=== PATIENT | female | born 1975 | race African-American/Black ===

== ENCOUNTER → 2016-04-13 | Outpatient (CLI) | payer OTHER ==
[~2016-04-13] MED LIST: PANT40TA5 PO
--- NOTE | 2016-04-13 15:53 | KCIC ---
PROCEDURE Pelvic sonogram. HISTORY Left lower quadrant pain. TECHNIQUE Trans abdominal and transvaginal sonographic imaging of the pelvis was performed. COMPARISON 06/27/2013 FINDINGS The uterus is surgically absent. The ovaries are not seen. No adnexal lesion or pelvic free fluid is seen. IMPRESSION 1. Surgically absent uterus. 2. Nonvisualization of the ovaries. Electronically signed by: Leti Gutierrez (Apr 13, 2016 15:51:49)
--- NOTE | 2016-04-13 17:08 | KCIC ---
Bilateral digital screening mammograms with CAD: HISTORY Routine screening COMPARISON Comparison is made to previous examinations dated 04/04/2015 and 03/30/2014. FINDINGS Breast density category C. The skin and nipples show no abnormalities. No abnormal lymph nodes are seen in the axilla. The breast parenchyma shows heterogeneous density. There are no dominant masses, suspicious calcifications or architectural distortions. IMPRESSION No evidence of malignancy. Recommend routine annual mammographic screening. This study was interpreted with the benefit of Computerized Aided Detection (CAD). Mammography is not 100% sensitive in detecting breast cancer. Therefore, a self breast exam and a clinical breast exam are very important. A negative mammogram does not negate a clinically suspicious finding and should not result in a delay in biopsying a clinically suspicious abnormality. BI-RADS category 1. Negative. This patient's information has been entered into a reminder system for the patient to be notified with the results of this examination and a target date for her next mammograms. Electronically signed by: Criss Lutz MD (Apr 13, 2016 17:06:39)
== END | disposition home or self-care (01) ==
LOC: KCIC MAMMO 14:53
PROVIDERS: ATTEND Obstetrics & Gynecology
DX: Z12.31 Encounter for screening mammogram for malignant neoplasm of breast (principal); N83.209 Unspecified ovarian cyst, unspecified side
CPT/HCPCS: 76830; 76856; G0202; 77067

== ENCOUNTER → 2017-04-19 | Outpatient (CLI) | payer OTHER | END | disposition home or self-care (01) | LOC: KCIC MAMMO 15:45 | DX: Z12.31 Encounter for screening mammogram for malignant neoplasm of breast (principal) | CPT/HCPCS: 77063; 77067 ==

== ENCOUNTER → 2018-04-25 | Outpatient (CLI) | payer OTHER ==
--- NOTE | 2018-04-26 11:23 | KCIC ---
Bilateral digital screening mammograms with 3-D tomosynthesis: Reason for examination: Routine screening. Comparison is made to previous studies dated 04/19/2017 and 04/13/2016. Bilateral mammograms in CC and oblique projections were obtained with 2-D imaging and 3-D tomosynthesis imaging on a Siemens Inspiration unit and reviewed on the workstation. Interpretation was made with the benefit of CAD. The skin and nipples show no abnormalities. No abnormal axillary lymph nodes are seen. The breast parenchyma is extremely dense. (Breast density: Category D.) There appears to be a 1.8 cm circumscribed nodule developing anteriorly at the 11:00 position of the left breast. This shows no associated calcification and may represent a cyst. Recommend further evaluation with ultrasound. There continues to be a small circumscribed lesion in the 6:00 B position possibly in the skin of the right breast. This is unchanged. There are no other dominant masses, suspicious calcifications or architectural distortion. Impression: 1.8 cm circumscribed nodular density anteriorly at the 11:00 position of the left breast. Recommend ultrasound follow-up. Your patient's mammogram demonstrates that she has dense breast tissue (breast density category C or D), which could hide abnormalities, and if she has other risk factors for breast cancer that have been identified, she might benefit from supplemental screening tests that may be suggested by you as her ordering physician. Dense breast tissue, in and of itself, is a relatively common condition. Therefore, this information is not provided to cause undue concern, but rather to raise your awareness and to promote discussion with your patient regarding the presence of other risk factors, in addition to dense breast tissue. Your patient's mammography results will be sent to her. BI-RAD Category 0: Incomplete. Needs additional imaging evaluation. "Our facility is accredited by the [employer] Mammography [employer]." This patient's information has been entered into a reminder system for the patient to be notified with the results of her examination and a target date for the next mammogram. Electronically signed by: Brittani Lutz MD (04/26/2018 11:20 AM) [id number]
== END | disposition home or self-care (01) ==
LOC: KCIC MAMMO 16:17
PROVIDERS: ATTEND Obstetrics & Gynecology
DX: Z12.31 Encounter for screening mammogram for malignant neoplasm of breast (principal)
CPT/HCPCS: 77063; 77067

== ENCOUNTER → 2018-04-28 | Outpatient (CLI) | payer OTHER ==
--- NOTE | 2018-04-28 14:04 | KCIC ---
Left breast ultrasound: Reason for examination: Nodular lesion on screening mammogram. Comparison is made to mammographic exam dated 04/25/2018. Ultrasound examination of the left breast was performed with attention to the area of mammographic concern and the left axilla. In the 11:00 position 3 cm from the nipple and corresponding to the nodule seen mammographically, there is a 1.7 cm simple cyst. There is some adjacent fibrocystic change. There is also a 6.6 mm cystic lesion at the 12:00 position 3 cm from the nipple. There is also some ductal ectasia. No suspicious lesions are seen. No abnormal appearing lymph nodes are seen in the axilla. IMPRESSION: 1.7 cm simple cyst at the 11:00 position corresponds with the area of mammographic concern. Additional benign-appearing fibrocystic changes at the 11:00 to 12:00 positions. No suspicious abnormality seen. Recommend routine mammographic follow-up. BI-RADS Category 2: Benign. "Our facility is accredited by the [employer] Mammography [employer]." This patient's information has been entered into a reminder system for the patient to be notified with the results of her examination and a target date for the next mammogram. Electronically signed by: Brittani Lutz MD (04/28/2018 2:00 PM) [id number]
== END | disposition home or self-care (01) ==
LOC: KCIC US 13:10
PROVIDERS: ATTEND Obstetrics & Gynecology
DX: N60.02 Solitary cyst of left breast (principal)
CPT/HCPCS: 76641